=== PATIENT | female | born 1955 | race Caucasian/White ===

== ENCOUNTER 2020-08-27 08:59 | Outpatient (REF) | payer OTHER, SELFPAY ==
[2020-08-27 11:31] LABS: Hematocrit 41.8 % (37-47); Hemoglobin 13.5 g/dl (12.0-16.0); Mean Corpuscular HGB Conc 32.3 g/dl (31.0-35.0); Mean Corpuscular Hemoglobin 31.8 pg (27.0-33.0); Mean Corpuscular Volume 98.4 fL (80-98); Mean Platelet Volume 9.4 fL (9.4-12.3); Platelet Count 327 X10*3/uL (160-400); Red Blood Count 4.25 X10*6/uL (4.20-5.50); Red Cell Distribution Width 12.6 % (11.0-16.0); White Blood Count 6.6 X10*3/uL (4.8-10.8)
[2020-08-27 11:39] LABS: Glucose Urine UA NEG (NEG); Leukocyte Esterase Urine NEG (NEG); Nitrite Urine NEG (NEG); Urine Blood TRACE (NEG); Urine Ketones NEG (NEG); Urine Protein NEG (NEG-TRACE)
[2020-08-27 11:47] LABS: Appearance Urine CLEAR; Color Urine YELLOW
[2020-08-27 12:04] LABS: RBC Urine 0-2 /HPF (0); Squamous Epithelial Cell Urine TRACE /LPF; WBC Urine 0 /HPF (0-4)
[2020-08-27 12:12] LABS: TSH reflex Free T4 0.32 mIU/mL (0.32-4.0)
[2020-08-27 12:18] LABS: Alanine Aminotransferase 33 U/L (0-31); Albumin Level 4.6 g/dL (3.5-5.0); Alkaline Phosphatase 63 U/L (39-117); Anion Gap 15 (12-20); Aspartate Amino Transferase 26 U/L (5-31); Bilirubin Total 0.6 mg/dL (0.0-1.0); Blood Urea Nitrogen 19 mg/dL (9-16); Calcium 9.4 mg/dL (8.4-10.2); Carbon Dioxide 25 mmol/L (22-29); Chloride 106 mmol/L (96-108); Cholesterol 221 mg/dL; Estimated Glomerular Filt Rate > 60; Glucose Fasting 115 mg/dL (60-99); HDL Cholesterol 108 mg/dL; LDL Cholesterol Calculated 103 mg/dl; Sodium 141 mmol/L (135-145); Total Protein 7.1 g/dL (6.5-8.0); Triglycerides 51 mg/dL
== END 2020-08-27 09:00 | disposition home or self-care (01) ==
LOC: HO.HMGCX 08:59
PROVIDERS: PCP Internal Medicine; Visit Provider Internal Medicine
DX: Z00.00 Encounter for general adult medical examination without abnormal findings (principal); H26.9 Unspecified cataract
CPT/HCPCS: 36415; 80053; 80061; 81001; 84443; 85027

== ENCOUNTER 2020-09-01 06:21 | Day surgery (SDC) | payer OTHER, SELFPAY ==
[2020-08-26 13:09] VITALS: BMI 30.2
--- NOTE | 2020-08-29 07:50 | MHC.SHP ---
Pre-Procedural Eval Section A The patient is an INPATIENT: No The History & Physical has been completed within 30 days and I have reviewed it.: Yes Section B Chief Complaint: cataract right eye Allergies: Allergies Allergy/AdvReac Type Severity Reaction Status Date / Time No Known Allergies Allergy Verified 08/27/20 08:14 Plan Diagnosis/Plan: Unchanged I have reviewed the history and physical and performed a pertinent physical examination on my patient. No changes have occurred unless specified.
--- NOTE | 2020-08-29 10:47 | HO.ANESPROP2 ---
Documented by User: Yamilet Ren 08/29/20 10:48 HPI - Anesthesia Eval Consult details Narrative: 65yo F for Cataract Extraction IOL Insertion PCP cleared [facility] Past Medical History Medical History Annual physical exam Arthritis Bilateral cataracts Cataract Family History Family History Father No problems noted. Surgical History Surgical History History of lumpectomy of right breast History of pubovaginal sling History of total bilateral knee replacement (TKR) Hx of section Hx of hysterectomy Hx of tubal ligation Social History Social History Are you a primary direct care supervisor to a significant other at home: No Do you presently have visiting nurse or other home services: No Alcohol intake: current Alcohol intake frequency: a few times a month Smoking Status: Former smoker Smoking Quit Date: 10 yrs ago Use of substances other than those prescribed or required for medical reasons: Yes Substance Use Frequency: Daily Have you been hit, kicked, punched, or otherwise hurt by someone within the past year? If so, by whom?: No Advance Directives: No Advance Directives Information Provided: No Advance Directives on File: No Recently lost weight without trying: No Meds Allergies Allergy/AdvReac Type Severity Reaction Status Date / Time No Known Allergies Allergy Verified 09/01/20 06:38 Home Medications Medication Instructions Recorded Confirmed Type magnesium 250 mg PO DAILY 08/26/20 08/27/20 History Exam Exam Date and Time: August 29, 2020 1047 Height,Weight and Vital Signs: Height 5 ft 2 in Weight 74.843 kg Assessment and Plan Assessment Anesthesia Assessment: Chart Reviewed Documented by User: Gayle Alvarez 09/01/20 07:23 [facility] Past Medical History Medical History Annual physical exam Arthritis Bilateral cataracts Cataract Family History Family History Father No problems noted. Surgical History Surgical History History of lumpectomy of right breast History of pubovaginal sling History of total bilateral knee replacement (TKR) Hx of section Hx of hysterectomy Hx of tubal ligation Social History Social History Are you a primary direct care supervisor to a significant other at home: No Do you presently have visiting nurse or other home services: No Alcohol intake: current Alcohol intake frequency: a few times a month Smoking Status: Former smoker Smoking Quit Date: 10 yrs ago Use of substances other than those prescribed or required for medical reasons: Yes Substance Use Frequency: Daily Have you been hit, kicked, punched, or otherwise hurt by someone within the past year? If so, by whom?: No Advance Directives: No Advance Directives Information Provided: No Advance Directives on File: No Recently lost weight without trying: No Meds Allergies Allergy/AdvReac Type Severity Reaction Status Date / Time No Known Allergies Allergy Verified 09/01/20 06:38 Home Medications Medication Instructions Recorded Confirmed Type magnesium 250 mg PO DAILY 08/26/20 08/27/20 History Exam Airway Mallampati Class: II TM Dist: >3cm Neck ROM: Full Partial: Upper Loose/Missing/Broken Teeth: No Heart: RRR Lungs: CTA Assessment and Plan Assessment Anesthesia Assessment: Anesthesia Plan Discussed and Chart Reviewed Final Anesthetic Review NPO: Yes ASA Class: II Final Preanesthetic Review: Meds/Allgs Chart Reviewed, Consent Obtained/Reviewed and Anes Risks/Benef Reviewed Patient Risk: Low Procedure Risk: Low Anesthetic Plan Anesthetic Plan: MAC: Disposition: Standard PACU
[2020-09-01 06:35] VITALS: BP 111/64; PULSE 71; RESP 16; TEMP 36.3; O2SAT 96
[2020-09-01 06:48] VITALS: BP 111/64; PULSE 71; RESP 16; TEMP 36.3; O2SAT 96
[2020-09-01] MEDS: Lactated Ringers 500 ML 50 ML IV (06:54)
[2020-09-01] MEDS: Tetracaine HCl/PF 0.5% Oph Sol 4 ML DROPS 1 DROP EYE-RIGHT (06:54)
[2020-09-01] MEDS: Tropicamide 1 % Ophth Sol 3 ML BTL 1 DROP EYE-RIGHT ×3 (06:56→07:04)
[2020-09-01] MEDS: Phenylephrine HCL 2.5% Oph SoL 2 ML BOTTLE 1 DROP EYE-RIGHT ×3 (06:58→07:07)
--- NOTE | 2020-09-01 07:49 | P.PCNO_ITS ---
Ophthalmology Procedure Procedure Date of Service: 09/01/20 Ophthalmology Viscoelastic: Healon Duet Dual Pack Pro Ophthalmology Lenses: TECNIS [id number] (20.5) Procedure Notes: PREOPERATIVE DIAGNOSIS: Decreased visual acuity right eye secondary to cataract POSTOPERATIVE DIAGNOSIS: Same PROCEDURE: Right cataract extraction with multifocal intraocular lens insertion SURGEON: Casey Bell M.D. ANESTHESIA: Topical/MAC ESTIMATED BLOOD LOSS: None COMPLICATIONS: None After obtaining informed consent, the patient was brought to the operating room suite and placed in the supine position. After adequate sedation per anesthesia, topical drops of Tetracaine were given to the right eye. The eye was then prepped and draped in the usual sterile fashion. The operating room microscope was then positioned over the operative eye and a lid speculum placed. A paracentesis was created. Viscoelastic was then instilled into the anterior chamber. A three plane incision was then created temporally, utilizing a 2.85 mm keratome. Capsulotomy forceps were then utilized to create a circular tear capsulotomy. Hydrodissection and hydrodelineation were carried out until adequate mobilization of the nucleus occurred. Phacoemulsification was then utilized to remove the dense central nu cleus followed by removal of the cortical material utilizing the automated aspiration irrigation unit. Viscoelastic was instilled into the posterior capsular bag followed by placement of a multifocal posterior chamber intraocular lens without difficulty. The residual Viscoelastic was then removed utilizing the automated IA machine. The wound was checked and found to be watertight. The patient tolerated the procedure well and the lid speculum was removed. Intracameral injection of Vigamox 0.1 mL followed by a subtenon injection of Kenalog-40 0.2 mL were administered. The patient will be seen in the a.m.
[2020-09-01 07:50] VITALS: BP 107/43; PULSE 56; RESP 16; TEMP 36.1; O2SAT 97
--- NOTE | 2020-09-01 08:09 | HO.POSTANES ---
Post Anesthesia Evaluation Post Anesthesia Evaluation Vital Signs: Vital Signs Temp Pulse Resp BP Pulse Ox 09/01/20 07:50 97 F 56 16 107/43 L 97 09/01/20 06:48 97.3 F 71 16 111/64 96 09/01/20 06:35 97.3 F 71 16 111/64 96 Anesthesia: Monitored Mental Status: Awake Pain Control: Satisfactory Nausea/Vomiting: None Hydration: Adequate Anesthesia-Related Issues: No Anes. Related Issues
== END 2020-09-01 08:15 | disposition home or self-care (01) ==
PROVIDERS: PCP Internal Medicine; Visit Provider Ophthalmology
PROC: (CPT 66984; principal; 2020-09-01 07:30)
DX: H25.11 Age-related nuclear cataract, right eye (principal); H52.4 Presbyopia; Z96.653 Presence of artificial knee joint, bilateral; Z87.891 Personal history of nicotine dependence; F12.90 Cannabis use, unspecified, uncomplicated
CPT/HCPCS: 66984; J2250; J3010; J3300; V2788

== ENCOUNTER → 2020-09-10 14:01 | Outpatient (BNVA) | payer OTHER, SELFPAY | PROVIDERS: PCP Internal Medicine; Visit Provider Physician Assistant | DX: K62.5 Hemorrhage of anus and rectum (principal); R10.9 Unspecified abdominal pain | CPT/HCPCS: Q3014 ==

== ENCOUNTER 2020-09-15 06:30 | Day surgery (SDC) | payer OTHER, SELFPAY ==
[2020-09-08 15:52] VITALS: BMI 30.2
--- NOTE | 2020-09-11 09:31 | MHC.SHP ---
Pre-Procedural Eval Section A The patient is an INPATIENT: No The History & Physical has been completed within 30 days and I have reviewed it.: Yes Section B Chief Complaint: catract left eye Allergies: Allergies Allergy/AdvReac Type Severity Reaction Status Date / Time No Known Allergies Allergy Verified 09/01/20 06:38 Plan Diagnosis/Plan: Unchanged I have reviewed the history and physical and performed a pertinent physical examination on my patient. No changes have occurred unless specified.
--- NOTE | 2020-09-12 09:56 | HO.ANESPROP2 ---
Documented by User: Yamilet Gela 09/12/20 09:56 HPI - Anesthesia Eval Consult details Narrative: 65yo F for Cataract Extraction IOL Insertion PCP cleared 1st eye 09/01/20 with MAC: Fent 50, Midaz 1.5 PMFSH Past Medical History Medical History (Updated 09/11/20 @ 09:46 by Mayra Ontiveros PA-C) Abdominal pain Annual physical exam Arthritis Bilateral cataracts Family History Family History Father No problems noted. Surgical History Surgical History (Updated 09/08/20 @ 15:51 by Valeria Cintron) Cataract extraction status of right eye History of lumpectomy of right breast History of pubovaginal sling History of total bilateral knee replacement (TKR) Hx of section Hx of hysterectomy Hx of tubal ligation Social History Social History (Updated 09/10/20 @ 14:44 by Mayra Ontiveros PA-C) Are you a primary daycare assistant to a significant other at home: No Do you presently have visiting nurse or other home services: No Alcohol intake: current Alcohol intake frequency: a few times a month Smoking Status: Former smoker Smoking Quit Date: 10 yrs ago Use of substances other than those prescribed or required for medical reasons: Yes Substance Use Type: Marijuana Substance Use Frequency: Daily Have you been hit, kicked, punched, or otherwise hurt by someone within the past year? If so, by whom?: No Advance Directives: No Advance Directives Information Provided: No Advance Directives on File: No Recently lost weight without trying: No Current occupation: [employer] Allergies Allergy/AdvReac Type Severity Reaction Status Date / Time No Known Allergies Allergy Verified 09/01/20 06:38 Home Medications Medication Instructions Recorded Confirmed Type magnesium 250 mg PO DAILY 08/26/20 09/10/20 History Exam Exam Date and Time: September 12, 2020 0956 Height,Weight and Vital Signs: Height 5 ft 2 in Weight 74.843 kg Assessment and Plan Assessment Anesthesia Assessment: Chart Reviewed Documented by User: Mandi Roberto 09/15/20 07:15 [facility] Past Medical History Medical History (Updated 09/11/20 @ 09:46 by Mayra Ontiveros PA-C) Abdominal pain Annual physical exam Arthritis Bilateral cataracts Family History Family History Father No problems noted. Surgical History Surgical History (Updated 09/08/20 @ 15:51 by Valeria Cintron) Cataract extraction status of right eye History of lumpectomy of right breast History of pubovaginal sling History of total bilateral knee replacement (TKR) Hx of section Hx of hysterectomy Hx of tubal ligation Social History Social History (Updated 09/10/20 @ 14:44 by Mayra Ontiveros PA-C) Are you a primary daycare assistant to a significant other at home: No Do you presently have visiting nurse or other home services: No Alcohol intake: current Alcohol intake frequency: a few times a month Smoking Status: Former smoker Smoking Quit Date: 10 yrs ago Use of substances other than those prescribed or required for medical reasons: Yes Substance Use Type: Marijuana Substance Use Frequency: Daily Have you been hit, kicked, punched, or otherwise hurt by someone within the past year? If so, by whom?: No Advance Directives: No Advance Directives Information Provided: No Advance Directives on File: No Recently lost weight without trying: No Current occupation: [employer] Meds Allergies Allergy/AdvReac Type Severity Reaction Status Date / Time No Known Allergies Allergy Verified 09/01/20 06:38 Home Medications Medication Instructions Recorded Confirmed Type magnesium 250 mg PO DAILY 08/26/20 09/10/20 History Exam Airway Mallampati Class: II TM Dist: >3cm Neck ROM: Full Partial: Upper Heart: RRR Lungs: CTA BL Assessment and Plan Assessment Anesthesia Assessment: Anesthesia Plan Discussed and Chart Reviewed Final Anesthetic Review NPO: Yes ASA Class: II Final Preanesthetic Review: Meds/Allgs Chart Reviewed and Consent Obtained/Reviewed Patient Risk: Low Procedure Risk: Low Anesthetic Plan Anesthetic Plan: MAC: Disposition: Standard PACU
[2020-09-15 07:12] VITALS: BP 117/67; PULSE 62; RESP 16; TEMP 36.2; O2SAT 97
[2020-09-15] MEDS: Lactated Ringers 500 ML 50 ML IV (07:15)
[2020-09-15] MEDS: Tetracaine HCl/PF 0.5% Oph Sol 4 ML DROPS 1 DROP EYE-LEFT (07:19)
[2020-09-15] MEDS: Phenylephrine HCL 2.5% Oph SoL 2 ML BOTTLE 1 DROP EYE-LEFT ×3 (07:20→07:29)
[2020-09-15] MEDS: Tropicamide 1 % Ophth Sol 3 ML BTL 1 DROP EYE-LEFT ×3 (07:22→07:31)
--- NOTE | 2020-09-15 08:30 | HO.PNOPHT ---
Ophthalmology Procedure Procedure Date of Service: 09/15/20 Ophthalmology Viscoelastic: Healon Duet Dual Pack Pro Ophthalmology Lenses: TECNIS MULTI [id number] (21 ZXT 150) Procedure Notes: PREOPERATIVE DIAGNOSIS: Decreased visual acuity left eye secondary to cataract POSTOPERATIVE DIAGNOSIS: Same PROCEDURE: Left cataract extraction with multifocal intraocular toric ZXT 150 axis 22lens insertion SURGEON: Casey Bell M.D. ANESTHESIA: Topical/MAC ESTIMATED BLOOD LOSS: None COMPLICATIONS: None After obtaining informed consent, the patient was brought to the operation room suite and placed in the supine position. After adequate sedation per anesthesia, topical drops of Tetracaine were given to the left eye. The eye was then prepped and draped in the usual sterile fashion. The operating room microscope was then positioned over the operative eye and a lid speculum placed. A paracentesis was created. Viscoelastic was then instilled into the anterior chamber. A three plane incision was then created temporally, utilizing a 2.85 mm keratome. Capsulotomy forceps were then utilized to create a circular tear capsulotomy. Hydrodissection and hydrodelineation were carried out until adequate mobilization of the nucleus occurred. Phacoemulsification was then utilized to remove the dense central nucleus followed by removal of the cortical material utilizing the automated aspiration irrigation unit. Viscoelastic was instilled into the posterior capsular bag followed by placement of a multifocaltoric ZXT 150 axis 22 degrees posterior chamber intraocular lens without difficulty. The residual Viscoelastic was then removed utilizing the automated IA machine. The wound was check and found to be watertight. The patient tolerated the procedure well and the lid speculum was removed. Intracameral injection of Vigamox 0.1 mL followed by a subtenon injection of Kenalog-40 0.2 mL were administered. The patient will be seen in the a.m.
[2020-09-15 08:33] VITALS: BP 107/53; PULSE 52; RESP 16; TEMP 36.5
--- NOTE | 2020-09-15 08:33 | HO.POSTANES ---
Post Anesthesia Evaluation Post Anesthesia Evaluation Vital Signs: Vital Signs Temp Pulse Resp BP Pulse Ox 09/15/20 07:12 97.2 F 62 16 117/67 97 Anesthesia: Monitored Mental Status: Awake Pain Control: Satisfactory Nausea/Vomiting: None Hydration: Adequate Anesthesia-Related Issues: No Anes. Related Issues
== END 2020-09-15 08:44 | disposition home or self-care (01) ==
PROVIDERS: PCP Internal Medicine; Visit Provider Ophthalmology
PROC: (CPT 66984; principal; 2020-09-15 08:40)
DX: H25.12 Age-related nuclear cataract, left eye (principal); H52.4 Presbyopia; Z79.899 Other long term (current) drug therapy; Z96.653 Presence of artificial knee joint, bilateral; Z87.891 Personal history of nicotine dependence
CPT/HCPCS: 66984; J2250; J3010; J3300; V2788

== ENCOUNTER 2020-09-23 06:34 | Day surgery (SDC) | payer OTHER, SELFPAY ==
[2020-09-16 12:25] VITALS: BMI 30.2
--- NOTE | 2020-09-22 09:44 | HO.ANESPROP2 ---
Documented by User: Yamilet Ren 09/22/20 09:45 HPI - Anesthesia Eval Consult details Narrative: 65yo F for Colonoscopy PMFSH Past Medical History Medical History Abdominal pain Arthritis Family History Family History Father No problems noted. Surgical History Surgical History H/O cataract extraction History of lumpectomy of right breast History of pubovaginal sling History of total bilateral knee replacement (TKR) Hx of section Hx of hysterectomy Hx of tubal ligation Social History Social History (Updated 09/10/20 @ 14:44 by Mayra Ontiveros PA-C) Are you a primary rn intensive care unit to a significant other at home: No Do you presently have visiting nurse or other home services: No Alcohol intake: current Alcohol intake frequency: a few times a month Smoking Status: Former smoker Smoking Quit Date: 10 yrs ago Use of substances other than those prescribed or required for medical reasons: Yes Substance Use Type: Marijuana Substance Use Frequency: Daily Have you been hit, kicked, punched, or otherwise hurt by someone within the past year? If so, by whom?: No Advance Directives: No Advance Directives Information Provided: No Advance Directives on File: No Recently lost weight without trying: No Current occupation: [employer] Allergies Allergy/AdvReac Type Severity Reaction Status Date / Time No Known Allergies Allergy Verified 09/23/20 06:45 Home Medications Medication Instructions Recorded Confirmed Type magnesium 250 mg PO DAILY 08/26/20 09/16/20 History Exam Exam Date and Time: September 22, 2020 0944 Height,Weight and Vital Signs: Height 5 ft 2 in Weight 74.84 kg Pertinent Lab Results Pertinent Lab Results: Laboratory Tests 08/27/20 08/27/20 09:21 09:21 WBC 6.6 Hgb 13.5 Hct 41.8 Plt Count 327 Sodium 141 Potassium 5.0 Chloride 106 Carbon Dioxide 25 BUN 19 H Creatinine 0.70 Assessment and Plan Assessment Anesthesia Assessment: Chart Reviewed Documented by User: Mandi Roberto 09/23/20 06:59 PMFSH Past Medical History Medical History Abdominal pain Arthritis Family History Family History Father No problems noted. Surgical History Surgical History H/O cataract extraction History of lumpectomy of right breast History of pubovaginal sling History of total bilateral knee replacement (TKR) Hx of section Hx of hysterectomy Hx of tubal ligation Social History Social History (Updated 09/10/20 @ 14:44 by Mayra Ontiveros PA-C) Are you a primary rn intensive care unit to a significant other at home: No Do you presently have visiting nurse or other home services: No Alcohol intake: current Alcohol intake frequency: a few times a month Smoking Status: Former smoker Smoking Quit Date: 10 yrs ago Use of substances other than those prescribed or required for medical reasons: Yes Substance Use Type: Marijuana Substance Use Frequency: Daily Have you been hit, kicked, punched, or otherwise hurt by someone within the past year? If so, by whom?: No Advance Directives: No Advance Directives Information Provided: No Advance Directives on File: No Recently lost weight without trying: No Current occupation: [employer] Allergies Allergy/AdvReac Type Severity Reaction Status Date / Time No Known Allergies Allergy Verified 09/23/20 06:45 Home Medications Medication Instructions Recorded Confirmed Type magnesium 250 mg PO DAILY 08/26/20 09/16/20 History Exam Airway Mallampati Class: I TM Dist: >3cm Neck ROM: Full Partial: Upper Heart: RRR Lungs: CTA BL Assessment and Plan Assessment Anesthesia Assessment: Anesthesia Plan Discussed and Chart Reviewed Final Anesthetic Review NPO: Yes ASA Class: II Final Preanesthetic Review: Meds/Allgs Chart Reviewed and Consent Obtained/Reviewed Patient Risk: Intermediate Procedure Risk: Intermediate Anesthetic Plan Anesthetic Plan: MAC: Disposition: Standard PACU
[2020-09-23 06:57] VITALS: BP 116/75; PULSE 68; RESP 18; TEMP 36.5; O2SAT 97
[2020-09-23] MEDS: Lactated Ringers 1,000 ML 100 ML IVCONT (07:09)
--- NOTE | 2020-09-23 07:26 | W.PM.OPN ---
Operative Note Operative Note Date of Service: 09/23/20 Narrative: Pre-op diagnosis: Colon cancer screening, abdominal pain, rectal bleeding Post-op diagnosis: other (Diverticulosis, proctitis) Procedure: COLONOSCOPY TILL CECUM WITH BIOPSIES Consent: Indications for the procedure and potential complications of bleeding, perforation, reaction to medications and missed diagnosis were discussed with the patient and informed consent was obtained. Instrument: Olympus PCF H 190 L variable stiffness pediatric colonoscope Monitoring: Vital signs and clinical assessment, intermittent blood pressure monitoring, continuous EKG monitoring, Pulse oximetry and Carbon Dioxide monitoring were done throughout the procedure. Colon withdrawl time was 19 minutes. Procedure: The patient was placed in the left lateral decubitis position and pre-procedure medications were administered. After a digital rectal examination of the ano-rectum, the video colonoscope was inserted into the rectum and advanced through the colon to the cecum. The colonoscope was slowly withdrawn in a retrograde panoramic fashion and the colon mucosa was carefully examined including a retroflexed view of the rectum. Findings and interventions are described below. Procedure Difficulty: Without difficulty Findings: Terminal Ileum: Distal 10 cm was examined and appeared normal - biopsies were obtained Cecum: Normal Ascending Colon: Moderate diverticulosis Transverse Colon: Moderate diverticulosis Descending Colon: Moderate diverticulosis Sigmoid Colon: Severe diverticulosis with luminal narrowing Rectum: Edema erythema with ulcerations from 0-10 cm - biopsies were obtained Ano-rectum: Hypertrophied anal papillae Colon preparation: Good Impression and Post Procedure Diagnosis: Colonoscopy Findings: No polyps were detected. Edema erythema with ulcerations from 0-10 cm - likely due to proctitis versus solitary rectal ulcer syndrome. Biopsies obtained from TI, right and left colon to check for IBD. Moderate to severe diverticulosis seen in the entire colon (lefty > than right) Plan: Await pathology results Patient has an appointment on 10/07/20 in the [facility] with YEE Chavira. Repeat Colonoscopy in 10 years. Above findings were reviewed with the patient and diverticulosis handout was given in the discharge area Surgeon: Rafael Freitas MD Anesthesia: MAC (Dr Vila) Estimated blood loss (mL): 0 Pathology: other (A. TI, B. Rt colon, C. Left Colon, D. Rectum) Condition: stable Disposition: PACU
--- NOTE | 2020-09-23 07:26 | MHC.SHP ---
Pre-Procedural Eval Section A The patient is an INPATIENT: No Changes since office visit: Yes Patient answered all questions; No Cold of Flu in the past 2 weeks, No New Medical Problems and No Changes in Medication The History & Physical has been completed within 30 days and I have reviewed it.: Yes Section B Chief Complaint: rectal bleeding Allergies: Allergies Allergy/AdvReac Type Severity Reaction Status Date / Time No Known Allergies Allergy Verified 09/23/20 06:45 Review of Systems Sugical H&P ROS: Negative: Constitution, Cardiovascular and Respiratory and Yes, Specify: Gastrointestinal (abdominal pain, hematochezia) Exam Surgical H&P Exam: Normal: Heart, Normal: Lungs, Normal: Extremities and Normal: Abdomen Plan Diagnosis/Plan: Unchanged I have reviewed the history and physical and performed a pertinent physical examination on my patient. No changes have occurred unless specified.
[2020-09-23 08:25] VITALS: BP 106/40; PULSE 55; RESP 16; TEMP 36; O2SAT 96
[2020-09-23 08:41] VITALS: BP 106/55; PULSE 61; RESP 16; TEMP 36.1; O2SAT 96
--- NOTE | 2020-09-23 10:49 | HO.POSTANES ---
Post Anesthesia Evaluation Post Anesthesia Evaluation Vital Signs: Vital Signs Temp Pulse Resp BP Pulse Ox 09/23/20 08:41 97 F 61 16 106/55 L 96 09/23/20 08:25 96.8 F 55 16 106/40 L 96 09/23/20 06:57 97.7 F 68 18 116/75 97 Anesthesia: Monitored Mental Status: Awake Pain Control: Satisfactory Nausea/Vomiting: None Hydration: Adequate Anesthesia-Related Issues: No Anes. Related Issues
== END 2020-09-23 09:05 | disposition home or self-care (01) ==
PROVIDERS: PCP Internal Medicine; Visit Provider Internal Medicine Gastroenterology
PROC: 0DJD8ZZ Inspection of Lower Intestinal Tract, Via Natural or Artificial Opening Endoscopic (ICD-10-PCS; CPT 45378; principal; 2020-09-23 07:30)
DX: K62.5 Hemorrhage of anus and rectum (principal); R10.9 Unspecified abdominal pain; K57.30 Diverticulosis of large intestine without perforation or abscess without bleeding; K62.89 Other specified diseases of anus and rectum; F12.90 Cannabis use, unspecified, uncomplicated; Z87.891 Personal history of nicotine dependence; Z96.653 Presence of artificial knee joint, bilateral; Z90.710 Acquired absence of both cervix and uterus
CPT/HCPCS: 45380; 88305

== ENCOUNTER → 2020-10-07 11:14 | Outpatient (BNVA) | payer OTHER, SELFPAY | PROVIDERS: PCP Internal Medicine; Visit Provider Physician Assistant | DX: K57.30 Diverticulosis of large intestine without perforation or abscess without bleeding (principal); K62.89 Other specified diseases of anus and rectum | CPT/HCPCS: Q3014 ==

== ENCOUNTER → 2020-11-25 09:05 | Outpatient (BNVA) | payer OTHER, SELFPAY | PROVIDERS: PCP Internal Medicine; Visit Provider Physician Assistant | DX: K62.89 Other specified diseases of anus and rectum (principal); K57.30 Diverticulosis of large intestine without perforation or abscess without bleeding; R10.9 Unspecified abdominal pain | CPT/HCPCS: Q3014 ==

== ENCOUNTER 2024-03-17 16:39 | Emergency (ER) | payer OTHER, SELFPAY ==
--- NOTE | ~2024-03-17 | CT_ITS ---
EXAMINATION: CT ABDOMEN AND PELVIS WITH CONTRAST CLINICAL INFORMATION: Lower abdominal pain and history of diverticulitis COMPARISON: CT abdomen and pelvis 05/12/2017 TECHNIQUE: Multidetector volumetric images were obtained from the superior aspect of the liver through the pubic symphysis following administration 85 mL of Omnipaque 350 intravenous contrast. Sagittal and coronal reformatted images were obtained on the technologist's workstation. Oral contrast: No This CT examination was performed using dose optimization techniques as appropriate, variously including the following: *Automated exposure control *Adjustment of mA and/or kV according to patient size (this includes techniques or standardized protocols for targeted exams where dose is matched to indication/reason for exam; i.e. extremities or head) *Use of iterative reconstruction technique DLP: 548 mGy-cm FINDINGS: LUNG BASES: Right middle lobe solid pulmonary micronodule, 4:53 new from prior. ABDOMINAL AND PELVIC WALL: Small fat-containing umbilical hernia. Small fat-containing left inguinal hernia. LIVER AND BILIARY TREE: Unremarkable. GALLBLADDER: Unremarkable. PANCREAS: Unremarkable. SPLEEN: Unremarkable. ADRENAL GLANDS: A 1.8 cm left adrenal nodule, previously 1.9 cm in 2017 therefore likely benign, no follow-up imaging recommended. KIDNEYS AND URETERS: Bosniak 1 left renal cyst, no follow-up imaging recommended. GASTROINTESTINAL TRACT: Small hiatal hernia. Colonic diverticulosis with pericolonic inflammatory fat stranding and wall thickening surrounding the sigmoid colon compatible with acute diverticulitis. No extraluminal air to suggest perforation or organized fluid collection to suggest abscess. VASCULAR: Unremarkable. LYMPH NODES/PERITONEUM: No lymphadenopathy. FREE FLUID: None. BLADDER: Unremarkable. PELVIC VISCERA: Status post hysterectomy. OSSEOUS STRUCTURES: Unremarkable. CT/CT abdomen pelvis w IV con IMPRESSION: * Colonic diverticulosis with pericolonic inflammatory fat stranding and wall thickening surrounding the sigmoid colon compatible with acute diverticulitis. No extraluminal air to suggest perforation or organized fluid collection to suggest abscess. * Right middle lobe solid pulmonary micronodule new from prior. According to the UPDATED 2017 Fleischner Society recommendations, the advised follow-up imaging for solid nodules <6 mm in the middle/lower lobes is no routine follow up.
[2024-03-17 16:45] VITALS: BP 109/64; PULSE 73; RESP 18; TEMP 36.8; O2SAT 96; BMI 29.8
--- NOTE | 2024-03-17 16:47 | ED_ITS ---
HPI - Abdominal Pain General Chief Complaint: Abdominal Pain Stated Complaint: diverticulitis Time Seen by Provider: 03/17/24 17:04 Source: patient Mode of arrival: ambulatory Limitations: no limitations History of Present Illness ED Provider: Dr. Laura Allen HPI narrative: Patient comes to the emergency room complaining of 2 days of diffuse abdominal pain but much worse on the left lower quadrant. Patient states that she has had diverticulitis in the past, never has had any abscesses or surgeries. Patient denies nausea vomiting or diarrhea. Denies any fever or chills. No hematuria or dysuria. Patient states that she is scheduled for bladder surgery 2 days from now. Related Data Home Medications ?Medication ?Instructions ?Recorded ?Confirmed magnesium 250 mg tablet 250 mg PO DAILY 08/26/20 09/16/20 Previous Rx's ?Medication ?Instructions ?Recorded phenazopyridine 200 mg tablet 200 mg PO TID 3 days #9 tabs 10/12/21 (Pyridium) sulfamethoxazole 800 1 tab PO BID 5 days #10 tabs 10/12/21 mg-trimethoprim 160 mg tablet (Bactrim DS) levofloxacin 500 mg tablet 500 mg PO DAILY #10 tabs 03/17/24 metronidazole 500 mg tablet 500 mg PO BID #20 tabs 03/17/24 oxycodone 5 mg tablet 5 mg PO BID PRN pain #8 tabs 03/17/24 polyethylene glycol 3350 17 17 g PO DAILY PRN laxative effect 03/17/24 gram/dose oral powder (Miralax) #238 grams Allergies Allergy/AdvReac Type Severity Reaction Status Date / Time No Known Allergies Allergy Verified 03/17/24 16:48 Review of Systems Review of Systems Constitutional : No Weight loss, No Fever, No Chills, No Night Sweats, No Fatigue, No Malaise ENT/Mouth : No Hearing loss, No Ear Pain, No Nasal Congestion, No Sinus Pain, No Hoarseness, No sore throat, No Rhinorrhea, No Swallowing Difficulty Eyes: No Eye Pain, No Swelling, No Redness, No Foreign Body, No Discharge, No Vision Changes Cardiovascular : No Chest Pain, No SOB, No Dyspnea on Exertion, No Orthopnea, No Edema, No Palpitations Respiratory : No Cough, No Sputum, No Wheezing, No Smoke Exposure, No Dyspnea Gastrointestinal : No Nausea, No Vomiting, No Diarrhea, No Constipation, complaining of diffuse abdominal pain much worse on the left lower quadrant, constant, nonradiating Genitourinary : no irregular bleeding, No Dysuria, No Urinary Frequency, No Hematuria, No Urinary Incontinence, No Urgency, No Flank Pain, No Urinary Flow Changes, No Hesitancy Musculoskeletal : No joint pain, No Myalgias, No Joint Swelling Skin : No Skin Lesions, No rash Neuro : No Weakness, No Numbness, No Paresthesias, No Loss of Consciousness, No Dizziness, No Headache Psych : No Anxiety/Panic, No Depression, No SI/HI/AH/VH, No Social Issues, Heme/Lymph: No Bruising, No Bleeding,No Lymphadenopathy Endocrine : No Polyuria, No Polydipsia, No Temperature Intolerance PMFSH Past Medical History Medical History Proctitis Diverticulosis of colon Abdominal pain Arthritis Surgical History H/O cataract extraction History of lumpectomy of right breast History of pubovaginal sling History of total bilateral knee replacement (TKR) Hx of section Hx of hysterectomy Hx of tubal ligation Family History Family History Father No problems noted. Brother Brain cancer Social History Social History Household Members: None Household Members Other:: nephew Are you a primary home care consultant to a significant other at home: No Do you presently have visiting nurse or other home services: No Alcohol intake: current Alcohol intake frequency: a few times a month Smoked in Last 30 Days: No Use of substances other than those prescribed or required for medical reasons: Yes Substance Use Type: Marijuana Substance Use Frequency: Daily Advance Directives: No Advance Directives Information Provided: No Current occupation: [employer] Physical Exam ED Vital Signs: Vital Signs - 24 hr 03/17/24 16:45 03/17/24 17:31 Temperature 98.2 F 98.6 F Pulse Rate 73 72 Respiratory Rate 18 16 Blood Pressure 109/64 112/53 L Pulse Oximetry 96 98 Oxygen Delivery Method Room Air Room Air BMI result Body Mass Index 29.8 Const Other: Appearance: Alert. Oriented X3. No acute distress. Eyes: Pupils equal, round and reactive to light. ENT: Pharynx normal. Neck: Normal inspection. Neck supple. No lymph nodes noted. No crepitus CVS: Normal heart rate and rhythm. Pulses normal. Normal S1 and S2 Respiratory: No respiratory distress. Breath sounds normal. No Wheezing. No rales Abdomen: Soft, pain to palpation over the left lower quadrant , no rebound, no guarding Skin: Skin warm and dry. Normal skin color. Normal skin turgor. Extremities: No lower extremity edema. No Lacerations. No Rash Neuro: Oriented X 3. No motor deficit. No sensory deficit. Moving all extremities. No slurred speech. CN 2 through 12 grossly intact Psych: calm, cooperative, normal affect Course Course Course Narrative: This is a Rapid Medical Exam performed in triage by Estela Dolan PA-C. Full HPI, ROS and PE to be performed by primary ED provider. 68 year-old F w/ PMHx diverticulosis, prolapsed bladder presenting to the ED c/o lower abdominal pain x . denies fever, N/V. admits sx feel similar to prior diverticulitits PE: abdomen soft diffusely ttp Plan: Labs, UA Medical Decision Making Medical Decision Making [facility] Narrative: My interpretation of labs: White blood cell count 15.1,, chemistry no obvious electrolyte abnormality. Urinalysis positive for UTI. -patient's vitals stable, normal blood pressure, no tachycardic, no fever. -patient was given levofloxacin which will cover both, diverticulitis and UTI, and also metronidazole was given p.o.. -I discussed the above mentioned with the patient. Admission the hospital was offered. Patient states that she feels fairly well and would like to be discharged home. Patient states that if she does not improve within the next 24-48 hours or if anything changes at any time, she will return to the emergency room Differential Diagnosis Differential Diagnoses: The differential diagnosis associated with the presentation includes (Diverticulitis, SBO, UTI, pyelonephritis) Admission/Observation Consideration of admission/observation: Escalation of care including admission/observation considered (And admission was offered, patient declined) Lab Data [facility] Lab Attestation statement: I reviewed the patient's lab results. 03/17/24 16:55 03/17/24 16:55 Labs: Lab Results 03/17/24 03/17/24 Range/Units 16:55 17:34 WBC 15.1 H (4.8-10.8) X10*3/uL RBC 4.14 L (4.20-5.50) X10*6/uL Hgb 13.4 (12.0-16.0) g/dl Hct 39.6 (37.0-47.0) % MCV 95.7 (80.0-98.0) fL MCH 32.4 (27.0-33.0) pg MCHC 33.8 (31.0-35.0) g/dl RDW 12.5 (11.0-16.0) % Plt Count 295 (160-400) X10*3/uL MPV 9.3 L (9.4-12.3) fL Immature Gran % (Auto) 0.5 H (0.0-0.4) % Neut % (Auto) 75.6 H (45-73) % Lymph % (Auto) 15.6 L (20-40) % [place] % (Auto) 7.4 (2-11) % Eos % (Auto) 0.5 (0-4) % Baso % (Auto) 0.4 (0-2) % Lymph # (Auto) 2.4 (1.2-4.9) X10*3/uL [place] # (Auto) 1.1 (0.1-1.2) X10*3/uL Eos # (Auto) 0.1 (0.0-0.4) X10*3/uL Baso # (Auto) 0.1 (0.0-0.2) X10*3/uL Abs Immat Gran (auto) 0.07 H (0.00-0.03) X10*3/uL Absolute Neuts (auto) 11.4 H (2.0-8.3) x10*3/uL Absolute Nucleated RBC 0.000 (0.0-0.012) X10*3/uL Nucleated RBC % (auto) 0.0 (0.0-0.2) /100WBC Sodium 141 (135-145) mmol/L Potassium 4.0 (3.3-5.1) mmol/L Chloride 107 (96-108) mmol/L Carbon Dioxide 24 (22-29) mmol/L Anion Gap 14 (12-20) BUN 17 H (9-16) mg/dL Creatinine 0.83 (0.5-1.4) mg/dL Estim Creat Clear Calc 61.0 Estimated GFR > 60 Random Glucose 133 H (60-115) mg/dL Calcium 10.0 D (8.4-10.2) mg/dL Magnesium 2.2 (1.6-2.6) mg/dL Total Bilirubin 0.8 (0.0-1.0) mg/dL Direct Bilirubin 0.3 (0.0-0.5) mg/dL AST 24 (5-31) U/L ALT 23 (0-31) U/L Alkaline Phosphatase 72 (39-117) U/L Total Protein 7.3 (6.5-8.0) g/dL Albumin 4.6 (3.5-5.0) g/dL Lipase 17 (8-78) U/L Urine Color Dark Yellow Urine Appearance Turbid Urine pH 5.5 (5.0-9.0) Ur Specific [place] >= 1.030 H (1.005-1.025) Urine Protein 30 (1+) H (Neg-Trace) mg/dL Urine Glucose (UA) Negative (Negative) mg/dL Urine Ketones Trace (Negative) mg/dL Urine Blood Moderate (2+) H (Negative) Urine Nitrite Negative (Negative) Ur Leukocyte Esterase Large (3+) H (Negative) Urine RBC 3-5 H (0-2) /HPF Urine WBC >50 H (0-5) /HPF Ur Squamous Epith Cells 3-5 (0-2) /HPF Urine Bacteria None Seen (None Seen) Hyaline Casts 11-20 (0-2) /LPF Medications Administered Discontinued Medications Generic Name Dose Route Start Last Admin Trade Name Freq PRN Reason Stop Dose Admin Sodium Chloride 1,000 mls @ 999 mls/hr 03/17/24 17:29 03/17/24 19:45 Ns IVCONT 03/17/24 18:29 Infused .Q1H1M ONE Infusion Iohexol 100 ml 03/17/24 17:25 03/17/24 17:25 Iohexol 350 Mg/Ml 100 Ml Infus..Btl IV 03/17/24 17:26 85 ml ONCE ONE Administration Levofloxacin 500 mg 03/17/24 19:30 03/17/24 19:43 Levofloxacin 500 Mg Tablet PO 07/27/24 19:31 500 mg ONCE ONE Administration Metronidazole 500 mg 03/17/24 19:30 03/17/24 19:43 Metronidazole 500 Mg Tablet PO 03/17/24 19:31 500 mg ONCE ONE Administration Morphine Sulfate 4 mg 03/17/24 17:29 03/17/24 18:42 Morphine Sulfate 4 Mg/Ml Cartridge IVPUSH 03/17/24 17:30 4 mg ONCE ONE Administration Protocol Ondansetron HCl 4 mg 03/17/24 17:29 03/17/24 18:42 Ondansetron Hcl 4 Mg/2 Ml Vial IVPUSH 03/17/24 17:30 4 mg ONCE ONE Administration Critical Care Time Critical Care Time Critical Care Time: Yes Total Critical Care Time: 60 Attestation: I have personally provided critical care time. Time includes review of lab data, radiology results, discussion with consultants, and monitoring for potential decompensation. Intervention performed as documented. Discharge Plan Discharge Clinical Impression: Diverticulitis Patient Disposition: Home, Self-Care Instructions: Diverticulitis (ED), Diverticulitis Diet (ED) Additional Instructions: Please follow-up with your primary care physician tomorrow. If you have any worsening or new symptoms, please return to the emergency room or call 911 Prescriptions: New metronidazole 500 mg tablet 500 mg PO BID Qty: 20 0RF levofloxacin 500 mg tablet 500 mg PO DAILY Qty: 10 0RF oxycodone 5 mg tablet 5 mg PO BID PRN (Reason: pain) Qty: 8 0RF Rx Instructions: Partial Fill upon patient request. polyethylene glycol 3350 [Miralax] 17 gram/dose powder 17 g PO DAILY PRN (Reason: laxative effect) Qty: 238 0RF No Action magnesium 250 mg Tablet 250 mg PO DAILY sulfamethoxazole-trimethoprim [Bactrim DS] 800-160 mg tablet 1 tab PO BID 5 Days Qty: 10 0RF phenazopyridine [Pyridium] 200 mg tablet 200 mg PO TID 3 Days Qty: 9 0RF Print Language: [place]ayan
[2024-03-17 17:00] LABS: MANUAL DIFF FLAG NO
[2024-03-17 17:03] LABS: Basophils Absolute Auto 0.1 X10*3/uL (0.0-0.2); Basophils Percent Auto 0.4 % (0-2); Eosinophils Absolute Auto 0.1 X10*3/uL (0.0-0.4); Eosinophils Percent Auto 0.5 % (0-4); Hematocrit 39.6 % (37.0-47.0); Hemoglobin 13.4 g/dl (12.0-16.0); Imm Gran Abs Auto 0.07 X10*3/uL (0.00-0.03); Imm Gran Pct Auto 0.5 % (0.0-0.4); Lymphocytes Absolute Auto 2.4 X10*3/uL (1.2-4.9); Lymphocytes Percent Auto 15.6 % (20-40); Mean Corpuscular HGB Conc 33.8 g/dl (31.0-35.0); Mean Corpuscular Hemoglobin 32.4 pg (27.0-33.0); Mean Corpuscular Volume 95.7 fL (80.0-98.0); Mean Platelet Volume 9.3 fL (9.4-12.3); Monocytes Absolute Auto 1.1 X10*3/uL (0.1-1.2); Monocytes Percent Auto 7.4 % (2-11); Neutrophils Absolute Auto 11.4 x10*3/uL (2.0-8.3); Neutrophils Percent Auto 75.6 % (45-73); Platelet Count 295 X10*3/uL (160-400); Red Blood Count 4.14 X10*6/uL (4.20-5.50); Red Cell Distribution Width 12.5 % (11.0-16.0); White Blood Count 15.1 X10*3/uL (4.8-10.8)
--- NOTE | 2024-03-17 17:09 | PC.NURSE ---
patient a&ox3, c/o abd pain, pt aware we need a urine, iv inserted, labs drawn, pt states she smokes pot daily/drinks only once a week. vitals stable, call pool within reach, will continue to monitor
[2024-03-17 17:15] LABS: Alanine Aminotransferase 23 U/L (0-31); Albumin Level 4.6 g/dL (3.5-5.0); Alkaline Phosphatase 72 U/L (39-117); Anion Gap 14 (12-20); Aspartate Amino Transferase 24 U/L (5-31); Bilirubin Direct 0.3 mg/dL (0.0-0.5); Bilirubin Total 0.8 mg/dL (0.0-1.0); Blood Urea Nitrogen 17 mg/dL (9-16); Carbon Dioxide 24 mmol/L (22-29); Chloride 107 mmol/L (96-108); Estimated Glomerular Filt Rate > 60; Glucose Random 133 mg/dL (60-115); Lipase 17 U/L (8-78); Magnesium 2.2 mg/dL (1.6-2.6); Sodium 141 mmol/L (135-145); Total Protein 7.3 g/dL (6.5-8.0)
[2024-03-17] MEDS: iohexoL 350 MG/ML 100 ML INFUS..BTL IV (17:25)
[2024-03-17 17:31] VITALS: BP 112/53; PULSE 72; RESP 16; TEMP 37; O2SAT 98
[2024-03-17 17:41] LABS: Appearance Urine Turbid; Color Urine Dark Yellow; Glucose Urine UA Negative (Negative); Leukocyte Esterase Urine Large (3+) (Negative); Nitrite Urine Negative (Negative); PH 5.5 (5.0-9.0); Specific Gravity - Urine >= 1.030 (1.005-1.025); UMIC TRIGGER UACC YES; Urine Blood Moderate (2+) (Negative); Urine Ketones Trace mg/dL (Negative); Urine Protein 30 (1+) mg/dL (Neg-Trace)
[2024-03-17 17:55] LABS: Bacteria Urine None Seen (None Seen); UACC Culture Trigger YES; WBC Urine >50 /HPF (0-5)
[2024-03-17] MEDS: 0.9 % Sodium Chloride 1,000 ML 999 ML IVCONT (18:42)
[2024-03-17] MEDS: Morphine Sulfate 4 MG/ML CARTRIDGE IVPUSH (18:42)
[2024-03-17] MEDS: ondansetron HCL 4 MG/2 ML VIAL IVPUSH (18:42)
[2024-03-17] MEDS: levoFLOXacin 500 MG TABLET PO (19:43)
[2024-03-17] MEDS: metroNIDAZOLE 500 MG TABLET PO (19:43)
[2024-03-17 20:01] VITALS: BP 127/71; PULSE 59; RESP 17; TEMP 36.6; O2SAT 99
[2024-03-17 20:10] VITALS: BP 127/71; PULSE 59; RESP 17; TEMP 36.6; O2SAT 99
== END 2024-03-17 20:36 | disposition home or self-care (01) ==
PROVIDERS: Physician Assistant; Emergency Provider Emergency Medicine; PCP Internal Medicine
DX: K57.32 Diverticulitis of large intestine without perforation or abscess without bleeding (principal); R10.32 Left lower quadrant pain
CPT/HCPCS: 36415; 74177; 80048; 80076; 81001; 83690; 83735; 85025; 87086; 96361; 96374; 96375; 99284; J2270; J2405; Q9967